=== PATIENT | female | born 1975 | race Caucasian/White ===

== ENCOUNTER 2019-05-20 14:51 | Emergency (ER) | payer OTHER ==
[~2019-05-20] VITALS: Ht 160 cm; Wt 77.1 kg
[2019-05-20 14:56] VITALS: BP 119/83; Ht 160 cm; Wt 77.1 kg
== END 2019-05-20 17:33 | disposition home or self-care (01) ==
LOC: ED 14:51
DX: S63.502A Unspecified sprain of left wrist, initial encounter (principal); W01.0XXA Fall on same level from slipping, tripping and stumbling without subsequent striking against object, initial encounter; Y93.89 Activity, other specified; Y92.89 Other specified places as the place of occurrence of the external cause; Y99.8 Other external cause status
CPT/HCPCS: A4570